=== PATIENT | female | born 1955 | race Caucasian/White ===

== ENCOUNTER 2021-01-01 08:13 | Day surgery (SDC) | payer OTHER ==
[2020-12-27 15:55] LABS: Absolute Lymphocytes (CBC) 2.2 K/uL (0.7-4.9); Basophils % 0.5 % (0-1.3); Hematocrit 38.5 % (36.0-45.0); Lymphocytes % 23.4 % (15.3-44.8); MPV 9.2 fL (7.6-11.3); RBC Red Blood Cell Count 4.03 M/uL (3.86-4.86)
[2020-12-27 16:06] LABS: Protime INR 0.93
--- NOTE | 2020-12-27 16:10 | RAD REPORT ---
EXAM DESCRIPTION: RAD - Chest Pa And Lat (2 Views) - 12/27/2020 3:40 pm CLINICAL HISTORY: PRE-OP, pending cystogram COMPARISON: None TECHNIQUE: Frontal and lateral views of the chest were obtained. FINDINGS: The lungs are clear. Heart size is normal and central vasculature is within normal limit s. No pleural effusion or pneumothorax seen. No acute bony finding noted. No aortic abnormality. IMPRESSION: No acute cardiopulmonary process.
[2020-12-27 16:14] LABS: Potassium 4.4 mmol/L (3.5-5.1)
--- NOTE | 2020-12-28 10:51 | EKG ---
Test Date: 2020-12-27 Test Time: 14:22:54 Cnc Technician: RONAN MEASUREMENT RESULTS: Intervals: Rate: 68 ME: 196 QRSD: 84 QT: 388 QTc: 412 [place]: P: 46 ME: 196 QRS: 37 T: 61 INTERPRETIVE STATEMENTS: Normal sinus rhythm Normal ECG Compared to ECG 05/23/2004 07:13:00 No significant changes Electronically Signed On 12-28-20 10:48:28 CDT by Marco Monzon
[2021-01-01] MEDS ORDERED: Ringers Lactate 1,000 ML IV ONE ×2 (08:40→11:59)
[2021-01-01] MEDS ORDERED: CEFAZOLIN/SWI 1gm 1 GM/10 ML SYR ONE (08:40)
[2021-01-01] MEDS ORDERED: propofoL 200 MG/20 ML VIAL IV ONE (09:53)
[2021-01-01] MEDS ORDERED: MIDAZOLAM HCL 2 MG/2 ML INJ ONE (09:53)
[2021-01-01] MEDS ORDERED: KETOROLAC 30 MG/ML INJ ONE (09:53)
[2021-01-01] MEDS ORDERED: LIDOCAINE 1% MPF 5 ML VIAL ONE (09:53)
[2021-01-01] MEDS ORDERED: FENTANYL CITR 250 MCG/5 ML ONE (09:53)
[2021-01-01] MEDS ORDERED: dexAMETHasone 10 MG/ML VIAL ONE (09:53)
[2021-01-01] MEDS ORDERED: ONDANSETRON 4 MG/2 ML VIAL ONE (09:54)
[2021-01-01] MEDS ORDERED: EPHEDRINE SULF 50 MG/ML VIAL ONE (11:05)
[2021-01-01] MEDS ORDERED: NA CHLORIDE 0.9% 1,000 ML ONE (11:59)
[2021-01-01] MEDS ORDERED: PHENAZOPYRIDINE 100MG TAB PO ONE (12:24)
[2021-01-01] MEDS ORDERED: CODEINE 30MG/APAP 300MG TAB PO PRN (12:24)
--- NOTE | 2021-01-01 12:36 | RAD REPORT ---
EXAM DESCRIPTION: RAD - Urography Retrograde - 01/01/2021 11:44 am FINDINGS: Liver is a total of 16 fluoroscopic KUB images obtained during a fluoroscopic assisted ret rograde ureterogram. No suspicious or unexpected finding. Fluoro time was 40 seconds.
[2021-01-01 13:09] VITALS: BP 117/75; TEMP 97.6; O2SAT 96
[2021-01-01] MEDS ORDERED: IBUPROFEN 400 MG TAB ONE ×2 (13:18→13:22)
--- NOTE | 2021-01-01 18:11 | OP ---
Date of Procedure: 01/01/2021 Surgeon: BRY JOHNSON Preoperative Diagnoses: 1.Abnormal/suspicious voided urinary cytology. 2.Gross hematuria. 3.Right flank pain. Postoperative Diagnoses: 1.Abnormal/suspicious voided urinary cytology. 2.Gross hematuria. 3.Right flank pain. 4.Meatal stenosis. Principle Procedures: 1.Cystoscopy with random bladder biopsies. 2.Bilateral selective ureteral barbotage cytologies. 3.Bilateral retrograde pyelographies. 4.Meatal dilation. Indication For Procedure: Ms. Zaragoza presented to the Urology Clinic having been seen by her primary care doctor initially with right flank pain and some gross hematuria. A CT scan was obtained without delayed phase imaging, which revealed no evidence of obstruction or ureteral or renal calculus and n o renal masses were identified. A voided cytology was sent and returned suspicious for urothelial ma lignancy, though of note, the fluorescence in situ hybridization study was unremarkable. As a result , I counseled the patient on the importance of operative evaluation as indicated above. We discussed the plan for attempted right ureteroscopy if possible. Procedure In Detail: The patient was consented in the preoperative holding area before being transfe rred to the operative suite where general anesthesia was induced. She was given Ancef IV antimicrobi al prophylaxis and pneumo boots were provided for DVT prophylaxis. She was placed in the lithotomy p osition, padded and secured to the table appropriately. Her genitalia were prepped using Hibiclens a nd draped in standard fashion. The case was begun attempting to utilize a 22-Nicaraguan rigid cystoscope to enter the meatus, but this was aborted due to a degree of meatal stenosis. Attempts to pass a 19 -Nicaraguan rigid cystoscope were also aborted. As such, I employed urethral sounds to dilate the meatus to 28-Nicaraguan. I was then able to pass a 19-Nicaraguan cystoscope into her bladder with ease. The [facility] was surveyed in its entirety, and there were no concerning mucosal lesions, foreign bodies, or sto yeny noted anywhere throughout. The ureteral orifices were orthotopic in location and there was no ev idence of any visible hematuria. There was evidence of mild squamous metaplasia in the trigone as wa s typical. I thus cannulated the left ureteral orifice using a cone-tipped catheter and attempted to collect urine for cytology. When no urine effluxed, I then injected 10 mL of sterile saline and att empted to collect some of the barbotage urine. An additional 10 mL was injected and yet still no bar botage urine could be collected. I thus passed a Sensor wire via the cone-tipped catheter and observ ed it fluoroscopically into the kidney on the left. I was then able to navigate the cone-tipped cath eter into the mid proximal ureter where I was then able to collect some of the urine. A retrograde p yelogram was then performed using a 50% mixture of Omnipaque and saline, and the mildly hydroureteron ephrotic system from the retrograde injection of about 30 mL of fluid was noted. No specific uretera l or renal pelvic or calyceal filling defects were noted. The blunting of the calices seen was very likely secondary to the injection again of 30 mL of fluid. I then collected more of the efflux of fl uid from her kidney, which was then sent for pathologic analysis as left ureteral barbotage cytology for left ureteral wash cytology. I then turned my attention to the right ureteral orifice, which was cannulated using a 5-Nicaraguan urete ral access catheter. I was able to inject 10 mL of saline into the ureter and then collect a suffici ent quantity of fluid as a right barbotage ureteral cytology. I then injected a 70:30 mixture of Omn ipaque and saline and performed a right retrograde pyelogram. Right retrograde pyelography: Using a 70:30 mixture of Omnipaque and saline, contrast mixture was injected via the 5-Nicaraguan uretera l access catheter and did propagate up a nondilated ureter with no significant filling defects into a normal-appearing renal pelvis and calices, which had a degree of blunting again likely secondary to the prior instillation of fluid. A couple of calices in the mid pole and lower pole posterior region s did not demonstrate completely normal triangular appearing anatomy, but no specific filling defect was visualized. As a result, I then passed a Sensor wire into the upper pole of the kidney and passe d a Dionnason guidewire likewise into the upper pole of the kidney. I then passed a ureteral access ca theter into the distal ureter and attempted to pass the flexible ureteroscope and perform flexible ur eteroscopy. Unfortunately, because of dense ureteral spasm present despite the presence of the urete ral access sheath, I was unable to visualize beyond the intramural ureter. As a result, the ureteros cope was removed as was the access sheath, and the 2 wires were also removed. I then observed for co mplete elimination of contrast from both collecting systems, which did occur in short order indicatin g the lack of any significant obstruction. I then turned my attention to the bladder where again no mucosal lesions were observed. Biopsies wer e taken in traditional random bladder biopsy fashion from the trigone, the posterior wall of the blad shayy, the dome, the left lateral wall, and the right lateral wall of the bladder. These were all sent for pathologic analysis, and the base of each of these lesions was fulgurated using a [employer] electro de at a cautery setting of 30. In the end, with no ongoing oozing noted, and with each of the biopsy sites adequately fulgurated, I then decompressed her bladder. The patient was then taken out of the lithotomy position, awakened from general anesthesia before being transferred to the stretcher and t hen to the recovery room in good condition. Complications: None. Discharge Disposition: She will follow up in the Urology Clinic in about 2 weeks to discuss the resu lts of the pathology where if any suspicious selective cytology is noted, definitive ureteroscopy wou ld be required. Otherwise, as long as the biopsies of the bladder were also unremarkable, we will co nsider this an unremarkable evaluation for her gross hematuria and only plan interval evaluation shou ld there be recurrence of it. I also discharged the patient with a prescription for estrogen cream t o be applied around the meatus due to the stenosis and the prolapse noted in that region. This will be used for about 1 month with a 1-month hiatus before repeat application. LUZ MARIA/JOY Voice ID: [id number] Report ID: [id number]
== END 2021-01-01 13:25 | disposition home or self-care (01) ==
LOC: OR 08:13
PROVIDERS: ATTEND Urology
PROC: 0T7D8ZZ Dilation of Urethra, Via Natural or Artificial Opening Endoscopic (ICD-10-PCS; 2021-01-01)
PROC: 0TBB8ZX Excision of Bladder, Via Natural or Artificial Opening Endoscopic, Diagnostic (ICD-10-PCS; principal; 2021-01-01 09:45)
DX: R31.29 Other microscopic hematuria (principal); N35.92 Unspecified urethral stricture, female; R10.9 Unspecified abdominal pain; Z20.822 Contact with and (suspected) exposure to COVID-19
CPT/HCPCS: 93005; 87088; 85025; 87086; 80048; 36415; 88108; 85610; 88305; 71046; 74420; 52204; 52281; U0002; Q9967; J2704; J2250; J3010; J1100; J0690; J7120 ×2; J7030; J2405

== ENCOUNTER 2021-03-12 08:40 | Day surgery (SDC) | payer OTHER ==
[~2021-03-12 08:40] MED LIST: AMPICILLIN SODIUM 2 GM in NA CHLORIDE 0.9% 100 ML IVPB SCH; Gentamicin Inj 220 MG in NA CHLORIDE 0.9% 100 ML IV SCH
[2021-03-12] MEDS ORDERED: Ringers Lactate 1,000 ML IV ONE (09:32)
[2021-03-12] MEDS ORDERED: MIDAZOLAM HCL 2 MG/2 ML INJ ONE (12:06)
[2021-03-12] MEDS ORDERED: propofoL 200 MG/20 ML VIAL IV ONE (12:06)
[2021-03-12] MEDS ORDERED: FENTANYL CITR 100 MCG/2 ML ONE (12:06)
[2021-03-12] MEDS ORDERED: LIDOCAINE 1% MPF 5 ML VIAL ONE (12:07)
[2021-03-12] MEDS ORDERED: dexAMETHasone 10 MG/ML VIAL ONE (12:33)
[2021-03-12] MEDS ORDERED: KETOROLAC 30 MG/ML INJ ONE (12:34)
[2021-03-12] MEDS ORDERED: ONDANSETRON 4 MG/2 ML VIAL ONE (12:34)
[2021-03-12] MEDS: PHENAZOPYRIDINE 100MG TAB PO ONE ×2 (13:28→14:10)
[2021-03-12] MEDS: CODEINE 30MG/APAP 300MG TAB PO PRN ×2 (13:28→13:57)
[2021-03-12] MEDS: MORPHINE 4 MG/ML SYR ONE ×2 (13:28→13:33)
[2021-03-12 14:08] VITALS: BP 126/60; TEMP 97; O2SAT 97
[2021-03-12] MEDS ORDERED: CODEINE 30MG/APAP 300MG TAB ONE (14:18)
[2021-03-12] MEDS ORDERED: PHENAZOPYRIDINE 100MG TAB PO ONE (14:18)
--- NOTE | 2021-03-12 15:11 | RAD REPORT ---
EXAM DESCRIPTION: RAD - Urethrocystogrphy Retrograde - 03/12/2021 1:28 pm FINDINGS: A total of 27 fluoroscopic KUB images were obtained during a fluoroscopic assisted placeme nt of bilateral ureteral stents. Images show stepwise placement of the stent with no suspicious findi ngs. Fluoro time was 43 seconds.
--- NOTE | 2021-03-12 20:04 | OP ---
Date of Procedure: 03/12/2021 Surgeon: BRY JOHNSON Preoperative Diagnoses: 1.Bilateral atypical upper tract cytologies. 2.Gross hematuria. Postoperative Diagnoses: 1.Bilateral atypical upper tract cytologies. 2.Gross hematuria. Principal Procedures: 1.Cystoscopy. 2.Bilateral ureteroscopy with pyeloscopy. 3.Bilateral renal pelvic wash cytology. 4.Bilateral ureteral cytology. 5.Bilateral retrograde pyelographies. 6.Bilateral ureteral stent placements. Indication For Procedure: Ms. Zaragoza presented to Urology Clinic in followup to her prior operative e xcursion to evaluate an atypical/suspicious bladder wash cytology. Selective cytologic assessments m jennifer the last time revealed bilateral atypical cytologies. This was done despite relatively normal re trograde studies. As a result, I counseled her extensively on the need for definitive upper tract ev aluation, especially since she had an interval occurrence of repeat gross hematuria. Procedure In Detail: The patient was consented in the preoperative holding area before being transfe rred to the operative suite where general anesthesia was induced. She was given ampicillin 2 g and g entamicin 220 mg IV antimicrobial prophylaxis, and pneumo boots were provided for DVT prophylaxis. S he was placed in the lithotomy position, and her genitalia was prepped using Hibiclens and draped in standard fashion. The case was begun using a 22-Serbian rigid cystoscope to traverse the urethra and into the bladder with ease. I then surveyed her bladder in its entirety and there were no concerning mucosal lesions, foreign bodies, or stones noted throughout. The ureteral orifices were orthotopic in location bilaterally and there was efflux of clear yellow urine bilaterally. I then cannulated th e left ureteral orifice with a 5-Serbian ureteral access catheter and performed a retrograde pyelograp hy study. Left retrograde pyelogram: Using a 70:30 mixture of Omnipaque and saline, contrast mixture was injected via the 5-Serbian uretera l access catheter and did propagate up a nondilated distal ureter into the mid and proximal ureter be fore entering a normal renal pelvis without signs of caliectasis or pelviectasis. No filling defects were apparent along the entirety of the course of the ureters or within the renal pelvis or calices. As such, I passed a Sensor wire via the 5-Serbian ureteral access catheter and into the upper pole o f the kidney where a coil was observed fluoroscopically. I then left the wire in place and turned my attention to the right ureteral orifice. Again, using a 5-Serbian ureteral access catheter, I cannul ated the ureteral orifice and performed a retrograde pyelogram on the right side. Right retrograde pyelography: Using a similar 70:30 mixture of Omnipaque and saline, contrast was injected via the 5-Serbian uretera l access catheter and did propagate up the distal into the mid distal ureter where there did appear t o be a point of ureteral narrowing with delayed upward propagation of the contrast. Contrast did end up filling the mid and proximal ureter, but did not initially enter anything more than the lower nestor e of the renal pelvis. As such, I prepared for additional contrast bolus, but before connecting the syringe and injecting the contrast, repeat fluoroscopic imagery confirmed all of the calices to be co mpletely delineated suggestive of delayed contrast entry into the renal pelvis and calices. The pelv is and calices had evidence of mild pelvocaliectasis, no filling defects were noted. As such, I pass ed a Sensor wire via the 5-Serbian ureteral access catheter and coiled it within the upper pole of the left kidney. I then turned my attention back to the left previously placed Sensor wire and over it, I passed a toña l-lumen catheter into the proximal ureter just beyond the UPJ. I then left the dual-lumen catheter t o dilate for while and passed a 5-Serbian ureteral access catheter over the right Sensor wire into the renal pelvis to allow that ureter to dilate. I then turned my attention back to the dual-lumen cath eter within the left collecting system and passed a Bentson guidewire via the second lumen and coiled alongside the indwelling safety wire. I then removed the dual-lumen catheter and used the flexible digital ureteroscope to pass up the Bentson guidewire and into the collecting system. Each of the ca lices was then surveyed as well as the renal pelvis, and there were no papillary mucosal lesions, for eign bodies, or stones noted throughout. There were areas of mild mucosal erythema, likely from hemo rrhage due to passage of the wires and the scope. Because no uniquely suspicious lesions were noted, after I had surveyed each of the calices as confirmed fluoroscopically, I then surveyed the pelvis a nd down into the proximal ureter at the level of the UPJ. I then aspirated the renal pelvis of 10-12 mL of fluid and sent this for pathologic analysis as left barbotage renal cytology. I then surveyed the proximal down through the mid and distal ureter on the left for any additional mucosal lesions, and when none were noted, I sent from the distal ureter just beyond the UPJ another aspirate of urine for cytologic analysis as left distal ureteral wash cytology. I then turned my attention back to th e right side where the dual-lumen catheter was again used to pass over the indwelling Sensor wire int o the renal pelvis after removing the 5-Serbian ureteral access catheter. I then passed the Bentson g uidewire again via the second lumen of the dual-lumen catheter and watched the coil alongside the ind welling safety wire. I removed the dual-lumen catheter and passed the flexible digital ureteroscope over the Bentson guidewire into the upper pole of the kidney. Each on the calices of the kidney was then again surveyed in a detailed fashion from proximal down through the mid and into the lower pole calices. The renal pelvis was also surveyed. There were no papillary mucosa lesions, foreign bodies or stones, and other than some mild areas of erythema, which very likely could have been from trauma due to passage of the wires or the scope itself, no concerning lesions were noted. So, similar to t he left side, I backed the scope into the proximal ureter at the level of the UPJ and took another 10 -12 mL of fluid and urine from the kidney and sent it as right renal wash cytology. I then surveyed the entirety of the ureter from proximal down through the distal ureter before again collecting anoth er 10 mL sample and sending it for pathologic cytologic analysis as right ureteral wash cytology. Ur eteroscopy was then discontinued with no suspicious findings, and I then placed a left, then right ur eteral stent 6 x 24 cm each with a coil observed fluoroscopically within the renal pelvis bilaterally and 1 cystoscopically form within the bladder. The bladder was then decompressed of fluid and urine , and the case was concluded. The patient was then taken out of the lithotomy position, awakened fro m general anesthesia, transferred to a stretcher, and then transferred to the recovery room in good c ondition. Complications: None. Discharge Disposition: I will have her follow up with me in the Urology Clinic to discuss the result s of the selective cytologies taken of the bilateral renal pelvis and calices as well as of the urete rs bilaterally. If no definitive diagnosis of urothelial carcinoma or CIS is made, we will discontin ue further evaluation at this time; however, if a definitive diagnosis is made, we will determine nec essary steps in subsequent treatment. We will then consider removal of the ureteral stents if the cy tology is nonsuspicious or continues to show signs of atypical cells. Subsequent followup will be de termined again based on the pathologic findings. Also, should the patient have recurrent gross hemat uria, followup would be determined by that. LUZ MARIA/JOY Voice ID: [id number] Report ID: [id number]
== END 2021-03-12 14:22 | disposition home or self-care (01) ==
LOC: OR 08:40
PROVIDERS: ATTEND Urology
PROC: 0T788DZ Dilation of Bilateral Ureters with Intraluminal Device, Via Natural or Artificial Opening Endoscopic (ICD-10-PCS; principal; 2021-03-12 11:30)
DX: R31.0 Gross hematuria (principal); R82.89 Other abnormal findings on cytological and histological examination of urine; R10.9 Unspecified abdominal pain; Z20.822 Contact with and (suspected) exposure to COVID-19
CPT/HCPCS: 87088; 87086; 88108; 88305; 74450; 51610; 52332; 52351; U0003; J2704; J1580; J2250; J3010; J1100; J7120; J2405; J0290

== ENCOUNTER 2021-07-01 07:17 | Day surgery (SDC) | payer OTHER ==
[2021-06-28 11:35] LABS: Absolute Lymphocytes (CBC) 1.6 K/uL (0.7-4.9); Hematocrit 39.5 % (36.0-45.0); Lymphocytes % 20.5 % (15.3-44.8); MPV 9.5 fL (7.6-11.3); RBC Red Blood Cell Count 4.12 M/uL (3.86-4.86)
--- NOTE | 2021-06-28 11:37 | RAD REPORT ---
EXAM DESCRIPTION: RAD - Chest Pa And Lat (2 Views) - 06/28/2021 11:32 am CLINICAL HISTORY: pre op pending cholecystectomy COMPARISON: Chest Pa And Lat (2 Views) dated 12/27/2020 FINDINGS: Lines: None. Lungs: No evidence of edema or pneumonia. Pleural: No significant pleural effusions or pneumothorax. Cardiac: The heart size is within normal limits. Bones: No acute fractures. Other: IMPRESSION: No acute cardiopulmonary disease.
[2021-06-28 12:01] LABS: ALT/SGPT 53 U/L (12-78); AST/SGOT 19 U/L (15-37); Albumin 3.3 g/dL (3.4-5.0); Alkaline Phosphatase 86 U/L (45-117); Amylase 88 U/L (25-115); BUN Blood Urea Nitrogen 23 mg/dL (7-18); Bicarbonate 29 mmol/L (21-32); Bilirubin Direct < 0.1 mg/dL (0-0.2); Bilirubin Total 0.3 mg/dL (0.2-1.0); Glucose Level 144 mg/dL (74-106); Lipase 399 U/L (73-393); Protein, Total 7.2 g/dL (6.4-8.2); Sodium Level 139 mmol/L (136-145)
--- NOTE | 2021-06-28 14:39 | EKG ---
Test Date: 2021-06-28 Test Time: 11:15:48 Embedded Engineer: PBALITO MEASUREMENT RESULTS: Intervals: Rate: 72 OR: 174 QRSD: 82 QT: 366 QTc: 400 [place]: P: 49 OR: 174 QRS: 54 T: 49 INTERPRETIVE STATEMENTS: Normal sinus rhythm Normal ECG Compared to ECG 12/27/2020 14:22:54 No significant changes Electronically Signed On 06-28-21 14:39:17 RN CLINICIAN by Marco Monzon
[2021-07-01] MEDS ORDERED: Ringers Lactate 1,000 ML IV ONE ×2 (07:28→10:26)
[2021-07-01] MEDS ORDERED: CELECOXIB 100 MG CAPSULE ONE (07:28)
[2021-07-01] MEDS ORDERED: ACETAMINOPHEN 500 MG TAB ONE (07:28)
[2021-07-01] MEDS ORDERED: MIDAZOLAM HCL 2 MG/2 ML INJ ONE (07:44)
[2021-07-01] MEDS ORDERED: FENTANYL CITR 100 MCG/2 ML ONE (07:44)
[2021-07-01] MEDS ORDERED: propofoL 200 MG/20 ML VIAL IV ONE (07:44)
[2021-07-01] MEDS ORDERED: ONDANSETRON 4 MG/2 ML VIAL ONE ×2 (07:45→09:47)
[2021-07-01] MEDS ORDERED: KETOROLAC 30 MG/ML INJ ONE (07:45)
[2021-07-01] MEDS ORDERED: dexAMETHasone 10 MG/ML VIAL ONE ×2 (07:45→08:14)
[2021-07-01] MEDS ORDERED: ROCURONIUM 50 MG/5 ML VIAL IV ONE (07:46)
[2021-07-01] MEDS ORDERED: LIDOCAINE 1% MPF 30 ML VIAL ONE (07:46)
[2021-07-01] MEDS ORDERED: BUPIVACAINE 0.25% PF 10 ML VIAL ONE (08:14)
[2021-07-01] MEDS: CEFOXITIN/NS 1gm 1 GM/50 ML BAG ONE ×2 (08:24→08:35)
[2021-07-01] MEDS ORDERED: Phenylephrine HCl 10 MG/ML 1 ML VIAL ONE (08:53)
[2021-07-01] MEDS ORDERED: GLYCOPYRROLATE 0.2 MG/ML SYR ONE ×2 (08:57→09:10)
[2021-07-01] MEDS ORDERED: NA CHLORIDE 0.9% 50 ML ONE (08:57)
[2021-07-01] MEDS ORDERED: NEOSTIGMINE 1 MG/ML -5 ML ONE (09:10)
--- NOTE | 2021-07-01 09:22 | P.BOP ---
Preoperative diagnosis: abd pain, biliary dyskinesia Postoperative diagnosis: same plus incarcerated epigastric ventral hernia Magneto Repairer: Monik Pugh (Derek) Estimated blood loss: <10cc Specimen: hernia sac Findings: hernia epigastric ventral with incarcerated omemtum/transverse colon Anesthesia: General Complications: None Transferred to: Recovery Room Condition: Good
[2021-07-01] MEDS ORDERED: Mastisol Adhesive Liq ONE (09:26)
[2021-07-01] MEDS: HYDROMORPHONE HCL 1 MG/ML INJ ONE ×2 (10:00→10:05)
--- NOTE | 2021-07-01 10:22 | OP ---
Date of Procedure: 07/01/2021 Surgeon: Roque Chacko MD Preoperative Diagnoses: Abdominal pain, biliary dyskinesia. Postoperative Diagnoses: Abdominal pain, biliary dyskinesia plus incarcerated ventral hernia epigast tari. Anesthesia: General plus local. Complications: None. Specimen: Hernia sac and gallbladder. Indication: This is the case of a 66-year-old patient, who comes to us with upper abdominal pain, di agnosed with bladder dyskinesia, also possible hernia. The benefits, alternatives, and risks of repa ir of laparoscopic possible open cholecystectomy with possible hernia repair fully explained, which i nclude, but not limited to infection, bleeding, damage to adjacent structures, anesthesia complicatio n, choledocholithiasis, bile leak, pancreatitis, IL, and even . She also understands this may n ot relieve any symptoms. She might need more than one surgical intervention. She understood, signed a consent. Procedure In Detail: The patient was brought to the operating room and placed in supine position. A nesthesia was done without complication. Abdominal area was prepped and draped in usual sterile fash ion. A time-out was called. Marcaine 0.5% was injected for local anesthetic followed by sharp incis ion of the skin in the infraumbilical region. Incision was carried down to fascia, which was opened under direct vision. Peritoneum was encountered, opened under direct vision. Vicryl #1 placed insid e the fascia. Alysha trocar was carefully introduced. Pneumoperitoneum was obtained. After we put the cameras in, once again we noticed the patient has an epigastric hernia with incarcerated omentum and large bowel, partially full partial on it. We then continued with 2 procedures. We have to repa ir the hernia, but also we have to get the gallbladder out. We cannot do this hernia opening for the trocars because they were in different locations, so we placed 3 more trocars in the right upper matt drant under direct visualization. This allowed me to put a grasper in the fundus of the gallbladder, another grasper in the infundibulum retracting the gallbladder in the inferolateral fashion, exposin g the triangle of Calot, and obtaining critical view. Cystic duct and cystic artery were clearly iso lated, freed circumferentially and a connection between those and the gallbladder were clearly identi fied. I proceeded to ligate those by using at least 3 clips proximal, 1 clip distal, ligation in mid dle. Same was done with the cystic artery. The gallbladder was removed from liver using Bovie caute rizer and removed from abdominal cavity using EndoCatch through umbilical incision. The area was ins pected once again. Clips were intact. Gallbladder fossa intact. No bleeding. Now, we have to deal with the epigastric hernia. Basically, it is midway between the xiphoid and the umbilical region. There are some adhesions attached to it. We have made a counter incision on the belly, small incisio n to allow us to remove the incarceration of this omentum and without putting traction on the bowel. Once we released that, the bowel looks intact. This omentum was removed and we have a hernia defect . Carefully, the hernia sac was removed and then we proceeded to close that with Vicryl #1 in a figu re-of-eight fashion multiple times. The patient tolerated the procedure well. We checked the area o nce again with the camera, looks intact, no air leak, and then the gallbladder area looked intact. A t that moment, I also checked the bowel, looks intact with no bleeding. At that moment, I proceeded to remove the trocars under direct vision. Deflated pneumoperitoneum. Closed the fascia with #1 Nicko ryl. Irrigated subcutaneous tissue, closed that with 3-0 chromic and skin in a subcuticular fashion with 3-0 chromic and Steri-Strips on top. Sponge count and instrument counts correct. The patient t olerated the procedure well. The patient was sent to recovery in stable condition. CK/JOY Voice ID: [id number] Report ID: [id number]
--- NOTE | 2021-07-01 10:22 | DS ---
Diagnoses: Acute cholecystitis, biliary dyskinesia, upper abdominal pain, incarcerated ventral herni a. Procedure: Laparoscopic cholecystectomy and repair of incarcerated ventral hernia. Disposition: Home. Activity: As tolerated. No heavy lifting. Plan: Followup in my office in 1 week. Call for appointment at [phone]. The patient will keep the area dry for 48 hours, then may shower. Keep Steri-Strip intact. Abdominal binder while she is out of bed. Medications: Include Tylenol No.3 q.4 hours p.r.n. pain, Bactrim DS p.o. b.i.d. CK/JOY Voice ID: [id number] Report ID: [id number]
[2021-07-01] MEDS ORDERED: CODEINE 30MG/APAP 300MG TAB ONE (10:50)
[2021-07-01 13:29] VITALS: BP 133/75; TEMP 98.3; O2SAT 96
== END 2021-07-01 11:35 | disposition home or self-care (01) ==
LOC: OR 07:17
PROVIDERS: ATTEND Surgery
PROC: 0WQF4ZZ Repair Abdominal Wall, Percutaneous Endoscopic Approach (ICD-10-PCS; 2021-07-01)
PROC: 0FT44ZZ Resection of Gallbladder, Percutaneous Endoscopic Approach (ICD-10-PCS; principal; 2021-07-01 08:30)
DX: K80.10 Calculus of gallbladder with chronic cholecystitis without obstruction (principal); K82.8 Other specified diseases of gallbladder; Z20.822 Contact with and (suspected) exposure to COVID-19; K43.6 Other and unspecified ventral hernia with obstruction, without gangrene
CPT/HCPCS: 36415; 71046; 80048; 80076; 82150; 83690; 85025; 88302; 88304; 93005; J0694; J1100; J1170; J2250; J2370; J2405; J2704; J2710; J3010; J7120; U0003

== ENCOUNTER 2025-01-09 06:59 | Day surgery (SDC) | payer OTHER ==
[2025-01-09] MEDS: Ringers Lactate 1,000 ML IV ONE (07:40)
--- NOTE | 2025-01-09 07:53 | RAD REPORT ---
EXAM: Chest Pa And Lat (2 Views) HISTORY: 69 years Female PREOP COMPARISON: 06/28/2021 FINDINGS: LUNGS/PLEURA: The lungs are clear. No pleural effusions or pneumothorax. No pulmonary edema. CARDIAC/MEDIASTINUM: The cardiac silhouette is within normal limits. UPPER ABDOMEN: No significant abnormality. BONES: No acute abnormality. LINES/TUBES/OTHER: N/A IMPRESSION: No evidence of acute cardiopulmonary disease. No significant change from prior.
[2025-01-09 08:10] LABS: Absolute Lymphocytes (CBC) 2.0 K/uL (0.7-4.9); Hematocrit 35.1 % (36.0-45.0); Hemoglobin 11.8 g/dL (12.0-15.0); MCH 32.0 pg (27.0-35.0); MCHC 33.5 g/dL (32.0-36.0); MCV 95.6 fL (80-100); MPV 9.4 fL (7.6-11.3); Nucleated RBC Absolute Count 0.0 (0-0); Nucleated Red Blood Cells % 0.0 % (0-0); RBC Red Blood Cell Count 3.68 M/uL (3.86-4.86); White Blood Count 8.50 thou/uL (4.3-10.9)
[2025-01-09 08:23] LABS: Anion Gap 6.1 mEq/L (5.0-15.0); BUN Blood Urea Nitrogen 33.0 mg/dL (7-18); Glucose Level 146.0 mg/dL (74-106); Potassium 4.1 mEq/L (3.5-5.1)
[2025-01-09] MEDS ORDERED: LIDOCAINE 2% MPF 5 ML VIAL ONE (08:42)
[2025-01-09] MEDS ORDERED: ONDANSETRON 4 MG/2 ML VIAL ONE (08:42)
[2025-01-09] MEDS ORDERED: FENTANYL CITR 100 MCG/2 ML ONE (08:43)
[2025-01-09] MEDS ORDERED: ROCURONIUM 50 MG/5 ML VIAL IV ONE (08:43)
[2025-01-09] MEDS ORDERED: EPHEDRINE SULF 50 MG/ML VIAL ONE (10:21)
[2025-01-09] MEDS: CEFAZOLIN SODIUM 1 GM/VIAL ONE (10:24)
[2025-01-09] MEDS: Mastisol Adhesive Liq ONE (11:06)
--- NOTE | 2025-01-09 11:07 | P.BOP ---
Preoperative diagnosis: incarcerated ventral hernia Postoperative diagnosis: same Primary procedure: 1. Laparoscopic repair of incarcerated ventral 3cm hernia with mesh Secondary procedure: 2. Laparoscopic lysis of adhesions Estimated blood loss: <10cc Specimen: sac Findings: as above Anesthesia: General Complications: None Drain(s): Other (ventralex large, maxfix fixation device) Transferred to: Recovery Room Condition: Good
[2025-01-09] MEDS ORDERED: GLYCOPYRROLATE 0.2 MG/ML SYR ONE (11:20)
[2025-01-09] MEDS: ONDANSETRON 4 MG/2 ML VIAL ONE (11:36)
[2025-01-09] MEDS: HYDROMORPHONE HCL 1 MG/ML INJ ONE (11:39)
[2025-01-09] MEDS ORDERED: SUGAMMADEX SODIUM 200 MG/2 ML VIAL IV ONE (11:43)
[2025-01-09] MEDS: PROMETHAZINE INJ 25 MG/ML AMP ONE (11:44)
[2025-01-09] MEDS: KETOROLAC 30 MG/ML INJ ONE (12:40)
[2025-01-09 13:43] VITALS: BP 137/54; TEMP 97; O2SAT 100
--- NOTE | 2025-01-09 21:34 | OP ---
Date of Procedure: 01/09/2025 Surgeon: Roque Chacko MD Preoperative Diagnosis: Tender incarcerated ventral hernia. Postoperative Diagnosis: Tender incarcerated ventral hernia. Procedures: 1. Laparoscopic repair of tender incarcerated ventral hernia with mesh. The hernia is about 3 cm. 2. Lysis of adhesions. Estimated Blood Loss: Less than 10 cc. Specimen: Hernia sac. Findings: Incarcerated omentum pulling transverse colon into the hernia itself that was carefully re duced without any enterotomies. Anesthesia: General plus local. Complications: None. Implant: A Ventralex large with a max fixation device. Indications: This is the case of a 69-year-old patient who comes to us with an incarcerated ventral hernia. The benefits, alternatives, and risks were fully explained of laparoscopic versus open repai r of ventral hernia with mesh, which include, but not limited to infection, bleeding, damage to adjac ent structures, anesthesia complication, recurrence, NM, and even . She also understands this m ay not relieve the symptoms. She might need more than one surgical intervention. She also understan ds the importance of losing weight. We discussed also the possibility of mesh placement in that spencer on. Pros and cons of mesh placement were discussed with the patient. All the questions were answere d to her satisfaction. She signed a consent. Description Of Procedure: The patient was brought to the operating room placed in supine position. Anesthesia was induced without complication. Abdominal area was prepped and draped in a sterile fash ion. Time-out was called. Local anesthesia was applied. We palpated the hernia in advance. We mad e an incision in that region. Incision was carried down to subcutaneous tissue. We found the mesh, hernia sac. We had to open the hernia sac to reduce partially the omentum. We did not want to reduc e completely, so we cleaned the fascial edges. We noticed that we may require mesh in that region du e to how thin the fascia was and friable. So, we put Vicryl #1 in a mknyei-vf-cuard fashion multiple times and put a Alysha trocar through this defect. The rest of the procedure was done laparoscopic. We placed 5 mm trocars after obtaining pneumoperitoneum in the left and right side of the abdomen, changed the cameras in that region. Then, looked at the middle and that is when we noticed bowel loo ps going into the hernia defect. So, carefully we dissected out with the help of ligature, lysis of adhesions were done. No enterotomies. No bleeding. At that moment, then we selected a large Ventra ibeth mesh to be placed in that area. We used a max fixation absorbable device to secure this mesh in place. We put this mesh through the trocar, pulled the trocar out, pulled the straps, secured the me sh to the anterior abdominal wall circumferentially, cut the straps, tied a [id number]-hf-nhgef multiple Vicryl in the fascia. This allowed us to have a water and airproof seal. We further fixated the mes h to the anterior abdominal wall with some local anesthetic and lysis of adhesions. No bleeding, no enterotomies. At that moment, I proceeded to remove the trocars under direct visualization, deflated the pneumoperitoneum. Closed the subcutaneous tissue with 3-0 chromic and the skin in a subcuticula r fashion with 3-0 chromic and Steri-Strips on top. Sponge count and instrument counts were correct. The patient tolerated the procedure well. The patient on her way to recovery in stable condition. CK/JOY Voice ID: [id number] Report ID: [id number]
== END 2025-01-09 13:40 | disposition home or self-care (01) ==
LOC: OR 06:59
PROVIDERS: ATTEND Surgery
PROC: 0WUF4JZ Supplement Abdominal Wall with Synthetic Substitute, Percutaneous Endoscopic Approach (ICD-10-PCS; principal; 2025-01-09 10:00)
DX: K43.9 Ventral hernia without obstruction or gangrene (principal)
CPT/HCPCS: 93005; 85025; 80048; 36415; 88302; 71046; 49594; J2550; J2704; J2003; J3010; J1100; J1171; J2405 ×2; J7120; J0690